=== PATIENT | male | born 1975 | race Caucasian/White ===

== ENCOUNTER 2020-06-10 20:22 | Emergency (ER) | payer OTHER ==
[~2020-06-10] VITALS: Ht 185.4 cm; Wt 117.0 kg
--- NOTE | 2020-06-10 21:09 | NUR ---
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
--- NOTE | 2020-06-10 21:33 | NUR ---
PT DROVE INTO ER AFTER HAVING AN EPISODE OF CHEST PAIN/ANXIETY AFTER HAVING A HEATED CONVERSATION ON THE PHONE. PT STATES HE HAD BEEN ON THE PHONE AND FRUSTRATED THEN AFTER THE PHON CALL FELT THAT HIS CHEST AND ACROSS FRY VICINITY TO SHOULDERS WAS EXTREMELY TIGHT. PT BRIEFLY FELT NAUEATED AND SOB. STATES A FEW MINUTES LATER IT PASSED HOWEVER THEY DECIDED TO COME IN TO BE SAFE. PT DENIES CP OR ANXIETY AT THIS TIME. PT PLACED ON SPO2/BP/ECG MONITORING AT THIS TIME. BED IN LOWEST, RAILS ENGAGED, CALL LIGHT ON LAP, PROVIDED WARM BLANKETS FOR COMFORT, WCTM. PT DENIES CARDIAC HX.
[2020-06-10 22:18] LABS: BASOPHILS % (AUTO) 1 % (0-1); EOSINOPHILS % (AUTO) 3 % (1-7); LYMPHOCYTES % (AUTO) 27 % (22-44); MEAN CORPUSCULAR HEMOGLOBIN 31.3 pg (27.5-34.5); MEAN CORPUSCULAR HGB CONC 34.1 g/dL (33.2-36.2); MEAN PLATELET VOLUME 7.5 fL (7.4-10.4); MONOCYTES % (AUTO) 8 % (2-9); NEUTROPHILS % (AUTO) 61 % (42-75); PLATELET COUNT 231 x10^3/uL (130-400); RED BLOOD COUNT 4.62 x10^6/uL (4.38-5.82); RED CELL DISTRIBUTION WIDTH 13.3 % (9.4-14.8)
[2020-06-10 22:19] LABS: MD NO
[2020-06-10 22:23] LABS: ALANINE AMINOTRANSFERASE 34 U/L (12-78); ALBUMIN 3.8 g/dL (3.4-5.0); ANION GAP 5 mmol/L (5-15); CALCIUM 8.5 mg/dL (8.5-10.1); CHLORIDE 109 mmol/L (98-107); CREATININE 1.07 mg/dL (0.7-1.3)
[2020-06-10 22:27] LABS: ALKALINE PHOSPHATASE 73 U/L (45-117); BILIRUBIN,TOTAL 0.4 mg/dL (0.2-1.0); TOTAL PROTEIN 6.9 g/dL (6.4-8.2); TROPONIN I < 0.015 ng/mL (0.000-0.045)
[2020-06-10 22:35] VITALS: BP 138/53
--- NOTE | 2020-06-10 22:40 | NUR ---
Patient given discharge instructions and they have confirmed that they understand the instructions. Patient ambulatory with steady gait. NAD, DENIES ADDITIONAL QUESTIONS OR NEEDS. NO PERSONAL BELONGINGS LEFT IN ROOM AFTER DC.
== END 2020-06-10 22:42 | disposition home or self-care (01) ==
LOC: ED 20:52
DX: R07.2 Precordial pain (principal); R07.89 Other chest pain; F17.210 Nicotine dependence, cigarettes, uncomplicated
CPT/HCPCS: 36415; 71045; 80053; 84484; 85025; 93005; 99285; 99406